=== PATIENT | male | born 1945 | race Caucasian/White ===

== ENCOUNTER 2016-08-05 21:14 | Emergency (ER) | payer OTHER ==
[~2016-08-05] VITALS: Ht 182.9 cm; Wt 75.0 kg
[~2016-08-05 21:14] MED LIST: DARV PO; Z.0.NO CURRENT MEDS
[2016-08-05 21:26] VITALS: BP 187/96; PULSE 74; RESP 26; TEMP 98.7; O2SAT 100
[2016-08-05] MEDS ORDERED: MULTTAB67 PO (21:26)
[2016-08-05] MEDS ORDERED: ASPI1TAB69 PO (21:26)
--- NOTE | 2016-08-05 21:56 | PD ---
HPI Chief Complaint: Abdominal Pain Time Seen by Provider: 21:53 Travel History International Travel<30 days: No Contact w/Intl Traveler<30days: No Traveled to known affect area: No History of Present Illness HPI Patient comes in for evaluation of LLQ abdominal pain that began around 1900 today. Describes pain as sharp stabbing in nature. Patient denies doing anything for this. Patient has h/o kidney stones, but states this feels different. Denies any loss or change in bowel or bladder, chest pain, shortness of breath, back pain, fevers, or trauma. Pain radiates into his left testicle. PFSH Past Medical History Kidney Stones: Yes Influenza Vaccination: No Past Surgical History Genitourinary Surgery: Yes (KIDNEY STONE REMOVED 30 YEARS AGO) Social History Alcohol Use: Yes (3 BEERS WEEKLY) Tobacco Use: No Allergies-Medications (Allergen,Severity, Reaction): Coded Allergies: Codeine (Verified Adverse Reaction, Intermediate, EMESIS, 08/05/16) Reported Meds & Prescriptions Reported Meds & Active Scripts Active [place] (Hydrocodone-Acetaminophen) 5-325 mg Tab 1 Tab PO Q8HR PRN Flomax (Tamsulosin HCl) 0.4 Mg Cap 0.4 Mg PO HS Ibuprofen 800 Mg Tab 800 Mg PO Q8H PRN Reported Multiple Vitamin 1 Tab 1 Tab PO DAILY Aspirin 81 Mg Tabdr 81 Mg PO DAILY Review of Systems Except as stated in HPI: all other systems reviewed are Neg Physical Exam Narrative GENERAL: Well-developed, well nourished, in no acute distress, and non-ill appearing. SKIN: Focused skin assessment warm and dry. HEAD: Atraumatic. Normocephalic. EYES: Pupils equal and round. EOMI. No scleral icterus. No injection or drainage. ENT: No nasal bleeding or discharge. Mucous membranes pink and moist. NECK: Trachea midline. Supple. No nuclear rigidity. CARDIOVASCULAR: Regular rate and rhythm. No murmur appreciated. RESPIRATORY: No accessory muscle use. No respiratory distress. Clear to auscultation. Breath sounds equal bilaterally. GASTROINTESTINAL: Abdomen soft, tenderness left lower quadrant, nondistended. Hepatic and splenic margins not palpable. Normal bowel sounds 4. No pulsatile mass. MUSCULOSKELETAL: No obvious deformities. No clubbing. No cyanosis. No edema. Full range of motion. NEUROLOGICAL: Awake and alert. No obvious cranial nerve deficits. Motor grossly within normal limits. Normal speech. PSYCHIATRIC: Appropriate mood and affect; insight and judgment normal. Data Data Last Documented VS Vital Signs Date Time Temp Pulse Resp B/P Pulse Ox O2 Delivery O2 Flow Rate FiO2 08/05/16 22:02 96 Room Air 08/05/16 21:26 98.7 74 26 187/96 Orders Complete Blood Count With Diff (08/05/16 21:50) Comprehensive Metabolic Panel (08/05/16 21:50) Lipase (08/05/16 21:50) Prothrombin Time / Inr (Pt) (08/05/16 21:50) Act Partial Throm Time (Ptt) (08/05/16 21:50) Urinalysis - C+S If Indicated (08/05/16 21:50) Ct Abd/Pel W/O Iv Contrast (08/05/16 21:50) Iv Access Insert/Monitor (08/05/16 21:50) Ecg Monitoring (08/05/16 21:50) Oximetry (08/05/16 21:50) Morphine Inj (Morphine Inj) (08/05/16 22:00) Ondansetron Inj (Zofran Inj) (08/05/16 22:00) Sodium Chloride 0.9% Flush (Ns Flush) (08/05/16 22:00) Ketorolac Inj (Toradol Inj) (08/05/16 22:00) Lactic Acid (08/05/16 21:50) Sodium Chlorid 0.9% 500 Ml Inj (Ns 500 M (08/05/16 23:30) Sodium Chlorid 0.9% 500 Ml Inj (Ns 500 M (08/06/16 00:00) Labs Laboratory Tests Test 08/05/16 08/05/16 22:05 23:30 White Blood Count 4.5 TH/MM3 Red Blood Count 4.46 MIL/MM3 Hemoglobin 14.9 GM/DL Hematocrit 41.5 % Mean Corpuscular Volume 93.0 FL Mean Corpuscular Hemoglobin 33.4 PG Mean Corpuscular Hemoglobin 35.9 % Concent Red Cell Distribution Width 14.8 % Platelet Count 125 TH/MM3 Mean Platelet Volume 8.5 FL Neutrophils (%) (Auto) 73.4 % Lymphocytes (%) (Auto) 20.2 % Monocytes (%) (Auto) 5.8 % Eosinophils (%) (Auto) 0.3 % Basophils (%) (Auto) 0.3 % Neutrophils # (Auto) 3.3 TH/MM3 Lymphocytes # (Auto) 0.9 TH/MM3 Monocytes # (Auto) 0.3 TH/MM3 Eosinophils # (Auto) 0.0 TH/MM3 Basophils # (Auto) 0.0 TH/MM3 CBC Comment DIFF FINAL Differential Comment Prothrombin Time 10.6 SEC Prothromb Time International 1.0 RATIO Ratio Activated Partial 20.5 SEC Thromboplast Time Sodium Level 141 MEQ/L Potassium Level 3.7 MEQ/L Chloride Level 105 MEQ/L Carbon Dioxide Level 22.2 MEQ/L Anion Gap 14 MEQ/L Blood Urea Nitrogen 23 MG/DL Creatinine 1.89 MG/DL Estimat Glomerular Filtration 36 ML/MIN Rate Random Glucose 112 MG/DL Lactic Acid Level 1.7 mmol/L Calcium Level 9.6 MG/DL Total Bilirubin 1.0 MG/DL Aspartate Amino Transf 23 U/L (AST/SGOT) Alanine Aminotransferase 33 U/L (ALT/SGPT) Alkaline Phosphatase 59 U/L Total Protein 8.1 GM/DL Albumin 4.5 GM/DL Lipase 210 U/L Urine Color YELLOW Urine Turbidity CLEAR Urine pH 6.5 Urine Specific [place] 1.019 Urine Protein NEG mg/dL Urine Glucose (UA) NEG mg/dL Urine Ketones 40 mg/dL Urine Occult Blood NEG Urine Nitrite NEG Urine Bilirubin NEG Urine Urobilinogen LESS THAN 2.0 MG/DL Urine Leukocyte Esterase NEG Urine RBC 3 /hpf Urine WBC 1 /hpf Urine Mucus FEW /lpf Microscopic Urinalysis Comment CULT NOT INDICATED MDM Medical Decision Making Medical Screen Exam Complete: Yes Emergency Medical Condition: Yes Differential Diagnosis Kidney stone, incarcerated hernia, diverticulitis, UTI, other Narrative Course Patient was seen and examined. Initial appropriate radiological studies obtained reviewed. Patient was signed out to Dr. Otto the conclusion of my shift at 11:00 pm pending CMP and urinalysis. I discussed CT findings with patient. All questions were answered. Please see her documentation for final diagnosis and disposition. Diagnosis Primary Impression: Kidney stone on left side Additional Impression: Hydronephrosis Qualified Code: N13.2 - Hydronephrosis with urinary obstruction due to renal calculus Patient Instructions: General Instructions, Hydronephrosis (ED), Kidney Stones (ED) Additional Instructions: Follow-up with your urologist this week for reevaluation. Take all medication as prescribed. Return to the emergency department if symptoms get worse. Med/Other Pt SpecificInfo: Prescription(s) given Scripts Hydrocodone-Acetaminophen ([place])5-325 mg Tab1 Tab PO Q8HR PRN (PAIN GREATER THAN 7) #7 TAB Ref 0 Prov:Heather Otto MD 08/05/16 Tamsulosin (Flomax)0.4 Mg Cap0.4 Mg PO HS #10 CAP Ref 0 Prov:Heather Otto MD 08/05/16 Ibuprofen 800 Mg [id number] Mg PO Q8H PRN (PAIN SCALE 1 TO 10) #15 TAB Ref 0 Prov:Heather Otto MD 08/05/16 Disposition: 01 DISCHARGE HOME Condition: Stable Jose Sanchez Aug 05, 2016 21:56
[2016-08-05] MEDS ORDERED: MORPHINE SULFATE 4 MG/ML INJ IV PUSH ONE (22:00)
[2016-08-05] MEDS ORDERED: ONDANSETRON HCL 4 MG/2 ML VIAL IVP ONE (22:00)
[2016-08-05] MEDS ORDERED: KETOROLAC TROMETHAMINE 30 MG/ML (IVP) VIAL IV PUSH ONE (22:00)
[2016-08-05] MEDS ORDERED: SODIUM CHLORIDE 0.9% FLUSH 10 ML FLUSH IV FLUSH PRN (22:00)
[2016-08-05 22:02] VITALS: O2SAT 96
[2016-08-05 22:22] LABS: AUTOMATED NEUTROPHIL # 3.3 TH/MM3 (1.8-7.7); BASOPHIL % 0.3 % (0.0-2.0); EOSINOPHIL % 0.3 % (0.0-4.0); HEMATOCRIT 41.5 % (39.0-51.0); HEMO FLAGS DIFF FINAL; LYMPH % 20.2 % (9.0-44.0); LYMPHOCYTE # 0.9 TH/MM3 (1.0-4.8); MEAN CORPUSCULAR HEMOGLOBIN 33.4 PG (27.0-34.0); MEAN CORPUSCULAR HGB CONC 35.9 % (32.0-36.0); MONO % 5.8 % (0.0-8.0); NEUT % 73.4 % (16.0-70.0); PLATELET COUNT 125 TH/MM3 (150-450); RED BLOOD COUNT 4.46 MIL/MM3 (4.50-5.90); RED CELL DISTRIBUTION WIDTH 14.8 % (11.6-17.2); WHITE BLOOD COUNT 4.5 TH/MM3 (4.0-11.0)
--- NOTE | 2016-08-05 22:32 | RADRPT ---
EXAM DATE/TIME: 08/05/2016 22:13 [place] COMPARISON: No previous studies available for comparison. INDICATIONS : Left lower qaudrant pain. ORAL CONTRAST: No oral contrast ingested. RADIATION DOSE: 6.58 CTDIvol (mGy) MEDICAL HISTORY : Renal calculi. SURGICAL HISTORY : None. ENCOUNTER: Initial ACUITY: 1 day PAIN SCALE: 10/10 LOCATION: Left lower quadrant TECHNIQUE: Volumetric scanning of the abdomen and pelvis was performed. Using automated exposure control and ad justment of the mA and/or kV according to patient size, radiation dose was kept as low as reasonably achievable to obtain optimal diagnostic quality images. FINDINGS: There is approximately 3.5 mm calculus at the left ureterovesical junction resulting in mild left-hasmukh ed obstructive mild left hydronephrosis. They are multiple additional nonobstructing calculi left kid ciara ranging in size from 1 mm to 4 mm, mostly in the lower pole. Multiple nonobstructing calculi also present in the right kidney ranging in size from about 1-3 mm. Calcified granuloma noted left lower lobe and right lung bases clear. No acute findings in the liver, spleen, adrenals and pancreas. No calcified gallstones or biliary nimesh debbie dilatation. No bowel obstruction. No free air free fluid. No acute bony abnormalities. CONCLUSION: 1. Nonobstructing 3.5 mm calculus at left ureterovesical junction with mild left hydronephrosis and o bstructive uropathy. Numerous additional small nonobstructing calculi in both kidneys. Felice Cummings MD on August 05, 2016 at 22:26 Board Certified Radiologist. This report was verified electronically.
[2016-08-05] MEDS ORDERED: NORC5TAB PO (22:44)
[2016-08-05] MEDS ORDERED: IBUP800T23 PO (22:44)
[2016-08-05] MEDS ORDERED: TAMS5CAP PO (22:44)
[2016-08-05 22:46] LABS: ANION GAP 14 MEQ/L (5-15); AST (GOT) 23 U/L (15-37); BICARBONATE 22.2 MEQ/L (21.0-32.0); BLOOD UREA NITROGEN 23 MG/DL (7-18); CHLORIDE 105 MEQ/L (98-107); GLOMERULAR FILTRATION RATE 36 ML/MIN (>89); POTASSIUM 3.7 MEQ/L (3.5-5.1); SODIUM (NA) 141 MEQ/L (136-145)
[2016-08-05 22:49] LABS: ALKALINE PHOSPHATASE 59 U/L (45-117); ALT (GPT) 33 U/L (12-78)
[2016-08-05 22:52] LABS: APTT (PATIENT) 20.5 SEC (24.3-30.1); PROTHROMBIN TIME - PATIENT 10.6 SEC (9.8-11.6)
--- NOTE | 2016-08-05 23:23 | PD ---
Data Data Last Documented VS Vital Signs Date Time Temp Pulse Resp B/P Pulse Ox O2 Delivery O2 Flow Rate FiO2 08/05/16 22:02 96 Room Air 08/05/16 21:26 98.7 74 26 187/96 Orders Complete Blood Count With Diff (08/05/16 21:50) Comprehensive Metabolic Panel (08/05/16 21:50) Lipase (08/05/16 21:50) Prothrombin Time / Inr (Pt) (08/05/16 21:50) Act Partial Throm Time (Ptt) (08/05/16 21:50) Urinalysis - C+S If Indicated (08/05/16 21:50) Ct Abd/Pel W/O Iv Contrast (08/05/16 21:50) Iv Access Insert/Monitor (08/05/16 21:50) Ecg Monitoring (08/05/16 21:50) Oximetry (08/05/16 21:50) Morphine Inj (Morphine Inj) (08/05/16 22:00) Ondansetron Inj (Zofran Inj) (08/05/16 22:00) Sodium Chloride 0.9% Flush (Ns Flush) (08/05/16 22:00) Ketorolac Inj (Toradol Inj) (08/05/16 22:00) Lactic Acid (08/05/16 21:50) Sodium Chlorid 0.9% 500 Ml Inj (Ns 500 M (08/05/16 23:30) Ns (Bolus) Inj (08/06/16 00:00) Labs Laboratory Tests Test 08/05/16 08/05/16 22:05 23:30 White Blood Count 4.5 TH/MM3 Red Blood Count 4.46 MIL/MM3 Hemoglobin 14.9 GM/DL Hematocrit 41.5 % Mean Corpuscular Volume 93.0 FL Mean Corpuscular Hemoglobin 33.4 PG Mean Corpuscular Hemoglobin 35.9 % Concent Red Cell Distribution Width 14.8 % Platelet Count 125 TH/MM3 Mean Platelet Volume 8.5 FL Neutrophils (%) (Auto) 73.4 % Lymphocytes (%) (Auto) 20.2 % Monocytes (%) (Auto) 5.8 % Eosinophils (%) (Auto) 0.3 % Basophils (%) (Auto) 0.3 % Neutrophils # (Auto) 3.3 TH/MM3 Lymphocytes # (Auto) 0.9 TH/MM3 Monocytes # (Auto) 0.3 TH/MM3 Eosinophils # (Auto) 0.0 TH/MM3 Basophils # (Auto) 0.0 TH/MM3 CBC Comment DIFF FINAL Differential Comment Prothrombin Time 10.6 SEC Prothromb Time International 1.0 RATIO Ratio Activated Partial 20.5 SEC Thromboplast Time Sodium Level 141 MEQ/L Potassium Level 3.7 MEQ/L Chloride Level 105 MEQ/L Carbon Dioxide Level 22.2 MEQ/L Anion Gap 14 MEQ/L Blood Urea Nitrogen 23 MG/DL Creatinine 1.89 MG/DL Estimat Glomerular Filtration 36 ML/MIN Rate Random Glucose 112 MG/DL Lactic Acid Level 1.7 mmol/L Calcium Level 9.6 MG/DL Total Bilirubin 1.0 MG/DL Aspartate Amino Transf 23 U/L (AST/SGOT) Alanine Aminotransferase 33 U/L (ALT/SGPT) Alkaline Phosphatase 59 U/L Total Protein 8.1 GM/DL Albumin 4.5 GM/DL Lipase 210 U/L Urine Color YELLOW Urine Turbidity CLEAR Urine pH 6.5 Urine Specific [place] 1.019 Urine Protein NEG mg/dL Urine Glucose (UA) NEG mg/dL Urine Ketones 40 mg/dL Urine Occult Blood NEG Urine Nitrite NEG Urine Bilirubin NEG Urine Urobilinogen LESS THAN 2.0 MG/DL Urine Leukocyte Esterase NEG Urine RBC 3 /hpf Urine WBC 1 /hpf Urine Mucus FEW /lpf Microscopic Urinalysis Comment CULT NOT INDICATED MDM Medical Record Reviewed: Yes Supervised Visit with FRANCINE: No Interpretation(s) Last Impressions Abdomen/Pelvis CT 08/05/16 2150 Signed Impressions: Service Date/Time: Friday, August 05, 2016 22:13 - CONCLUSION: 1. Nonobstructing 3.5 mm calculus at left ureterovesical junction with mild left hydronephrosis and obstructive uropathy. Numerous additional small nonobstructing calculi in both kidneys. Felice Cummings MD Narrative Course During the course of the patients emergency department visit, the patients history, examination, and differential diagnosis were reviewed with the patient. The patient had IV access obtained and blood work sent for analysis. The patient's case was checked out to me by Jose, the physician blacksmith assistant at the conclusion of his shift. Please see his complete history and physical. The patient was initially provided morphine for pain, Zofran for nausea, Toradol additionally for pain. The patient was given normal saline a 500 mL bolus 1. The patients laboratory studies were reviewed and remarkable for a CMP was remarkable for a BUN of 23, creatinine 1.89, glucose 112, lipase 210, lactic acid 1.7, PT PTT unremarkable. Urinalysis shows 40 ketones, 3 RBCs 1 WBC, culture not indicated. The patient was given a second 500 mL IV fluid bolus. Radiology studies were reviewed and remarkable for a CT scan of the abdomen and pelvis that revealed a 3.5 calculus of the left UVJ with mild left hydronephrosis and obstructive uropathy, numerous additional small nonobstructing calculi in both kidneys. The patient reports that he is followed by Dr. Sánchez a local urologist. He was instructed to call him in the morning for an appointment this week. The patient will be discharged home with a prescription for pain medication and Flomax. The patient is resting comfortably and feels better, is alert and in no distress. The patients results and examination findings were discussed with the patient. The repeat examination is unremarkable and benign. The history, exam, diagnostic testing, and current condition do not suggest any significant pathology to warrant further testing, continued ED treatment, admission, or surgical evaluation at this point. The vital signs have been stable. The patient does not have uncontrollable pain, intractable vomiting, or other significant symptoms. The patient's condition is stable and appropriate for discharge. The patient will pursue further outpatient evaluation with a primary care physician or other designated or consulting physician as indicated in the discharge instructions. The patient expressed understanding and was agreeable with this plan. Diagnosis Primary Impression: Kidney stone on left side Additional Impression: Hydronephrosis Qualified Code: N13.2 - Hydronephrosis with urinary obstruction due to renal calculus Referrals: Urologist 1 day Patient Instructions: General Instructions, Kidney Stones (ED), Hydronephrosis (ED) Additional Instruction: Follow-up with your urologist this week for reevaluation. Take all medication as prescribed. Return to the emergency department if symptoms get worse. Med/Other Pt SpecificInfo: Prescription(s) given Scripts Hydrocodone-Acetaminophen ([place])5-325 mg Tab1 Tab PO Q8HR PRN (PAIN GREATER THAN 7) #7 TAB Ref 0 Prov:Heather Otto MD 08/05/16 Tamsulosin (Flomax)0.4 Mg Cap0.4 Mg PO HS #10 CAP Ref 0 Prov:Heather Otto MD 08/05/16 Ibuprofen 800 Mg [id number] Mg PO Q8H PRN (PAIN SCALE 1 TO 10) #15 TAB Ref 0 Prov:Heather Otto MD 08/05/16 Disposition: 01 DISCHARGE HOME Condition: Stable Heather Otto MD Aug 05, 2016 23:23
[2016-08-05] MEDS ORDERED: SODIUM CHLORID 0.9% 500 ML INJ 500 ML IV ONE (23:30)
[2016-08-05 23:45] LABS: BLOOD, URINE NEG (NEG); COMMENT (UR) CULT NOT INDICATED; CULTURE IF INDICATED CULT NOT INDICATED; GLUCOSE,URINE NEG (NEG); KETONE, URINE 40 mg/dL (NEG); MUCUS URINE FEW /lpf (OCC); NITRITE,URINE NEG (NEG); PH, URINE 6.5 (5.0-8.5); URINE COLOR YELLOW (YELLW/STRAW)
[2016-08-06] MEDS ORDERED: SODIUM CHLORID 0.9% 500 ML INJ 500 ML IV ONE
== END 2016-08-06 00:43 | disposition home or self-care (01) ==
LOC: NEPE 21:14
DX: N13.2 Hydronephrosis with renal and ureteral calculous obstruction (principal); N20.0 Calculus of kidney; N50.812 Left testicular pain; Z87.442 Personal history of urinary calculi
CPT/HCPCS: 74176; 80053; 81001; 83605; 83690; 85025; 85610; 85730; 96361; 96374; 96375; 99284; J1885; J2270; J2405; J7040